=== PATIENT | male | born 2000 | race Hispanic/Latino ===

== ENCOUNTER 2020-01-10 20:16 | Emergency (ER) | payer OTHER, MEDICAID ==
[~2020-01-10] VITALS: Ht 170.2 cm; Wt 89.0 kg
[2020-01-10] MEDS ORDERED: IBUPROFEN600 MG PO (22:37)
[2020-01-10 22:38] VITALS: BP 128/72
== END 2020-01-10 22:43 | disposition home or self-care (01) | DRG 556 ==
LOC: ED 20:16
DX: M25.511 Pain in right shoulder (principal); M25.542 Pain in joints of left hand; M79.651 Pain in right thigh; S70.11XA Contusion of right thigh, initial encounter; V59.40XA Driver of pick-up truck or van injured in collision with unspecified motor vehicles in traffic accident, initial encounter